=== PATIENT | female | born 1950 | race Caucasian/White ===

== ENCOUNTER 2024-02-29 12:07 | Emergency (ER) | payer MEDICARE ==
[~2024-02-29] VITALS: Ht 170.2 cm; Wt 90.7 kg
[2024-02-29 12:17] VITALS: BP 140/86
[2024-02-29 12:30] VITALS: BP 133/93
[2024-02-29 12:45] VITALS: BP 122/76
[2024-02-29 12:54] LABS: BASO% 0.6 % (0-3); EOS% 2.7 % (0-8); HEMATOCRIT 43.5 % (37.0-47.0); HEMOGLOBIN 14.3 g/dl (12.0-16.0); IMMATURE GRANULOCYTES 0.3 % (0.0-5.0); LYMPH% 20.3 % (15-41); MEAN CORPUSCULAR HGB 31.2 pG CALC (26.0-32.0); MEAN CORPUSCULAR HGB CONC 32.9 g/dL CAL (32.0-36.0); NEUT# 5.67 thou/uL (2.00-7.15); NEUT% 64.1 % (42-76); RED BLOOD COUNT 4.58 mill/uL (4.20-5.60); RED CELL DISTRI WIDTH 13.8 % (11.5-15.5)
[2024-02-29 13:00] VITALS: BP 125/72
[2024-02-29 13:07] LABS: ALBUMIN 4.3 g/dL (3.2-5.0); BILIRUBIN, TOTAL 0.8 mg/dL (0.02-1.3); CREATININE 0.9 mg/dL (0.5-1.0); POTASSIUM 4.6 mmol/l (3.5-5.1); TOTAL PROTEIN 8.1 g/dL (6.3-8.2)
[2024-02-29 13:15] VITALS: BP 128/76
[2024-02-29] MEDS ORDERED: NAPROXEN500 MG PO (13:19)
[2024-02-29 13:30] VITALS: BP 126/71
== END 2024-02-29 13:39 | disposition home or self-care (01) ==
LOC: ED 12:07
PROVIDERS: Nurse Practitioner
DX: M17.12 Unilateral primary osteoarthritis, left knee (principal); I10 Essential (primary) hypertension